=== PATIENT | female | born 1980 | race Caucasian/White ===

== ENCOUNTER 2025-04-21 18:32 | Emergency (ER) | payer OTHER, SELFPAY ==
--- NOTE | ~2025-04-21 | XR_ITS ---
XR knee RT 3V 04/21/2025 18:52 INDICATION: Right knee pain after fall PROCEDURE: 4 views right knee COMPARISON: No prior studies for comparison. FINDINGS: Fracture, dislocation or subluxation is not identified. The soft tissues appear within normal limits. No foreign bodies are identified. IMPRESSION: 1: NO ACUTE BONE OR JOINT ABNORMALITY IDENTIFIED. Reviewed, dictated and finalized at location O.
--- NOTE | 2025-04-21 18:41 | ED.LOWEXIN ---
HPI - Extremity Injury (Lower) General Chief Complaint: Extremity Injury, Lower Stated Complaint: INJURED R LEG Time Seen by Provider: 04/21/25 18:35 Source: patient Mode of arrival: ambulatory Limitations: no limitations History of Present Illness HPI Narrative: Ciara is a 45-year-old female patient presenting to the clinic today with complaints of right lower leg injury after falling down a 4-5 steps at 5:00 this evening when carrying some items down the stairs. She reports she is having pain to the right proximal lateral tib/fib. Rates pain 4/10 with movement/standing. Has take tylenol at 5:15pm. Denies hitting her head, neck pain, or back pain. Related Data Home Medications ?Medication ?Instructions ?Recorded ?Confirmed ?Last Taken ?Type dextroamphetamine-amphetamine 20 04/21/25 Unknown History mg tablet lamotrigine 150 mg tablet mg 04/21/25 Unknown History sertraline 100 mg tablet mg 04/21/25 Unknown History Allergies Allergy/AdvReac Type Severity Reaction Status Date / Time ibuprofen AdvReac Unknown Verified 04/21/25 19:01 Review of Systems Review of Systems: Pertinent positives per HPI. Patient denies any fever, chills, rash, headache, visual changes, dizziness, cough, runny nose, sore throat, shortness of breath, chest pain, palpitations, nausea, vomiting, diarrhea, constipation, abdominal pain, or any urinary issues. PMFSH Comments At the time of my signature, I reviewed and agree with the nursing past medical, surgical, social, and family history. There is no relevant family history pertinent to the patient complaint. Exam Narrative: General: Well-developed, well nourished, in no apparent distress Head: Normocephalic, atraumatic. Cardio: Regular rate and rhythm, s1 and s2 normal, no murmur appreciated. Resp: Clear to auscultation bilaterally, no rhonchi, rales, wheezing or rubs. Musculoskeletal: No deformity, no tenderness over the cervical, thoracic, or lumbar spine, tender to palpation over the right proximal lateral tib/fib, grossly normal range of motion, muscle strength strong and equal, peripheral pulse strong, no edema, no cyanosis, normal gait and station Course Course Emergency Course: Portions of this record may have been created with voice recognition software. Level of Care: Express Care Visit Vital Signs Vital signs: Vital Signs Temperature 36.2 C L 04/21/25 18:53 Pulse Rate 91 04/21/25 18:53 Respiratory Rate 16 04/21/25 18:53 Blood Pressure 147/84 H 04/21/25 18:53 Pulse Oximetry 100 04/21/25 18:53 Temperature 36.2 C L 04/21/25 18:53 Pulse Rate 91 04/21/25 18:53 Respiratory Rate 16 04/21/25 18:53 Blood Pressure 147/84 H 04/21/25 18:53 Pulse Oximetry 100 04/21/25 18:53 Vital signs reviewed MDM - Extremity Injury (Lower) MDM Narrative Medical decision making narrative: At the time of visit patient is resting comfortably on the exam table. Patient appears to be nontoxic. Complaints of right lower leg injury after falling down a 4-5 steps at 5:00 this evening when carrying some items down the stairs. She reports she is having pain to the right proximal lateral tib/fib. Rates pain 4/10 with movement/standing. Has take tylenol at 5:15pm. Denies hitting her head, neck pain, or back pain. X-ray of the right knee was ordered Diagnostics: X-ray of the right knee was performed and negative for any fracture or malalignment. Plan: Patient has a right lower extremity pain over the lateral proximal tib-fib. X-rays were negative for any fracture or malalignment. Kareem wrap and ice pack was given. Sensation, circulation, motion within normal limits after Kareem wrap application. Recommend wearing a hinged knee brace for support when ambulating. Supportive measures were discussed with the patient and they voiced understanding discharge instructions and agrees to treatment plan. Return precautions reviewed Differential Diagnosis Differential diagnosis: Likely acute internal derangement of knee and other (Tib-fib fracture, contusion, muscle strain, knee sprain) Imaging Data Radiologist's impression: ITS Impressions Knee X-Ray 04/21/25 18:58 IMPRESSION: 1: NO ACUTE BONE OR JOINT ABNORMALITY IDENTIFIED. Discharge Plan Discharge Clinical Impression: Acute pain of right lower extremity Patient Disposition: Home Condition: Stable Instructions: Antibiotic Form, Leg Pain (ED) Additional Instructions: X-rays negative for any sign of fracture or malalignment of the right proximal leg/knee May wear a hinged knee brace when bearing weight to help support the knee joint Rest, ice, elevate, and wear kareem wrap as directed Tylenol/motrin for pain as discussed. Gradually bear weight No running or sports until healed. Follow up with your PCP if symptoms persist more than 1 week. Patient Language: [place] Prescriptions: No Action lamotrigine 150 mg tablet sertraline 100 mg tablet dextroamphetamine-amphetamine 20 mg tablet Follow-up/Referrals: Joy,MD Chelly [Primary Care Provider, Unknown] Time of Disposition: 19:08 Quality NIHSS Nursing Documentation ED NIHSS nursing documentation: reviewed/agree
[2025-04-21 18:53] VITALS: BP 147/84; PULSE 91; RESP 16; TEMP 36.2; O2SAT 100
== END 2025-04-21 19:17 | disposition home or self-care (01) ==
PROVIDERS: Emergency Provider Nurse Practitioner Family; PCP Internal Medicine
DX: M79.661 Pain in right lower leg (principal); F32.A Depression, unspecified
CPT/HCPCS: 73562; 99203; G0463

== ENCOUNTER 2025-05-06 16:17 | Emergency (ER) | payer OTHER, SELFPAY ==
--- NOTE | 2025-05-06 16:19 | ED.WOUNDLAC ---
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 Bleeding controlled. Unknown last Tdap. Patient with full range of motion and sensation intact distal to injury Patient tetanus UTD: No Related Data Home Medications ?Medication ?Instructions ?Recorded ?Confirmed ?Last Taken ?Type dextroamphetamine-amphetamine 20 04/21/25 Unknown History mg tablet lamotrigine 150 mg tablet mg 04/21/25 Unknown History sertraline 100 mg tablet mg 04/21/25 Unknown History Allergies Allergy/AdvReac Type Severity Reaction Status Date / Time ibuprofen AdvReac Unknown Verified 05/06/25 16:29 Review of Systems Review of Systems: All systems reviewed & are unremarkable except as noted in HPI and below Constitutional: Constitutional: Reports no additional constitutional complaints Musculoskeletal: Musculoskeletal: Reports no additional musculoskeletal complaints Integumentary/Breasts: Skin/Breast: Reports as per HPI PMFSH Comments At the time of my signature, I reviewed and agree with the nursing past medical, surgical, social, and family history. There is no relevant family history pertinent to the patient complaint. Exam Const: General: cooperative, healthy appearing, comfortable, no acute distress, well developed, alert and well nourished Nutritional Appearance: well nourished Orientation/consciousness: patient oriented x3 Limitations: no limitations HENMT: Head: normal to inspection Eyes: General: appearance normal, both eyes and all related structures Alignment and Position: alignment normal Neck: Neck: normal visual inspection, full ROM, no lymphadenopathy and no meningeal signs Chest: Chest palpation & inspection: normal inspection of the chest Resp: Effort & Inspection: normal respiratory effort and able to speak in complete sentences Cardio: Rate: regular rate Skin: General skin exam: normal color and no rashes or lesions noted Other: 2 cm laceration medial right knee. Neuro: General: patient oriented x3, gait normal, moves all extremities and no meningeal signs Cognition (Neuro): normal cognition Speech: normal speech Gait exam (Neuro): Normal gait present Extrem: General: normal to inspection, full ROM, capillary refill normal and normal gait Right lower extremity: knee Details: normal ROM and laceration; no tenderness and no swelling Psych: Appearance: grossly normal and well kempt Mental Status: mental status grossly normal Speech and movement: Normal speech and movement present and Clear speech present Affect: normal affect Attitude: cooperative Course Course Level of Care: Express Care Visit Vital Signs Vital signs: Vital Signs Temperature 96.7 F L 05/06/25 16:25 Pulse Rate 80 05/06/25 16:25 Respiratory Rate 16 05/06/25 16:25 Blood Pressure 128/88 05/06/25 16:25 Pulse Oximetry 100 05/06/25 16:25 Temperature 96.7 F L 05/06/25 16:25 Pulse Rate 80 05/06/25 16:25 Respiratory Rate 16 05/06/25 16:25 Blood Pressure 128/88 05/06/25 16:25 Pulse Oximetry 100 05/06/25 16:25 Reviewed Procedures Laceration Laceration 1: Date: 05/06/25 Time: 16:55 Site: lower extremity Side (If applicable): right Size (cm): 2 Description: linear Depth: simple, single layer Local Anesthetic: lidocaine 1% Amount of anesthesia used (mL): 6 Pre-repair: wound explored and irrigated (200) ====== Skin Level ====== Skin layer closed with: nylon Size (cm): 5-0 Number of sutures: 4 Technique: simple, interrupted ====== Subcutaneous Layer ====== ====== Muscle Layer ====== ====== Tendon Layer ====== Dressing: Procedure explained, alternatives of not closing. Increase risk of infection discussed. After explanation of procedure, verbal consent obtained. Patient is concerned she might have had a reaction to Betadine, used surgical scrub and saline cleaned the area around and in the wound. Lidocaine injected, anesthesia achieved. Two hundred mils of saline used to irrigate wound. Four sutures placed. Patient tolerated well. MDM - Wound/Laceration MDM Narrative Medical decision making narrative: Patient sitting in exam room. Patient is nontoxic, vitals stable. Patient presents with a laceration to the right leg, 2 cm. Four sutures placed. Patient is appropriate for outpatient treatment Patient also updated on tetanus Discharge instructions reviewed with patient, as well as provided in writing per nursing staff. The instructions also include specific and strict return/GO TO THE ER as well as f/u information. All questions have been answered, and the patient deny any further questions with discharge and discharge plan. Some parts of this dictation were generated by voice recognition software and may contain typographical and/or grammatical inaccuracies. Differential Diagnosis Differential diagnosis: Likely laceration, abscess, abrasion and avulsion of skin Critical Care Time Critical Care Time Critical Care Time: No Discharge Plan Discharge Clinical Impression: Laceration, Vaccine for [id number], combined Patient Disposition: Home Condition: Stable Instructions: Care For Your Stitches (DC), Laceration (ED) Additional Instructions: Keep area clean and dry. Wash with warm soapy water twice daily. Pat dry. Keep covered with a Band-Aid when not at home. Try leaving open to air minimum of 4 hours every day when sitting at home. Take Tylenol as needed for pain Apply ice every 2-3 hours for 15-20 minutes while awake. Follow-up with your primary care provider in 10 days to have sutures removed Patient Language: Chinese Prescriptions: No Action lamotrigine 150 mg tablet sertraline 100 mg tablet dextroamphetamine-amphetamine 20 mg tablet Follow-up/Referrals: Joy,MD Chelly [Primary Care Provider, Unknown] - 2 Weeks Referral Note: Suture removal Clinical Impression: Laceration; Vaccine for [id number], combined Stand Alone Forms: Work/School Release IP Time of Disposition: 17:11
[2025-05-06 16:25] VITALS: BP 128/88; PULSE 80; RESP 16; TEMP 35.9; O2SAT 100
[2025-05-06] MEDS: LIDOCAINE 1% LOCAL INJ 2 ML AMPUL 6 ML INFILTRATE (16:44)
[2025-05-06] MEDS: TETANUS,DIPHTHERIA,AC PERTUSSIS ADULT (0.5 ML) BOOSTRIX IM (16:45)
== END 2025-05-06 17:15 | disposition home or self-care (01) ==
PROVIDERS: Emergency Provider Nurse Practitioner; PCP Internal Medicine
DX: S81.011A Laceration without foreign body, right knee, initial encounter (principal); W27.8XXA Contact with other nonpowered hand tool, initial encounter; Z23 Encounter for immunization
CPT/HCPCS: 12001; 90471; 90715; 99212; G0463; J2003